=== PATIENT | female | born 2005 | race Two or more races ===

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

== ENCOUNTER 2025-06-05 10:11 | Outpatient (REF) | payer MEDICAID, SELFPAY ==
--- OUTSIDE RECORDS SUMMARY | 2025-06-05 11:00 | XMS_ITS | Encounter Summary ---
Author Organization [employer] Address [address] [facility] 7t [place] [address] Care Team Providers Care Fire Engine Pump Operator Name Role Phone Leslee Mckeon NP Primary Care Provider [phone] Reason for Visit * Reason Onset Date Comments Lab Orders 06/04/2025 Encounter Details Date Type Department Care Team ([facility] st Contact Info) Description 06/04/2025 Telephone [facility] MEDICINE [address] [place] [address] Leslee Mckeon NP [address] [place] [address] Lab Orders Social History Tobacco Use Types Packs/Day Years Used Date Smoking Tobacco: Never Smokeless Tobacco: Never Alcohol Use Standard Drinks/Week Comments Yes 0 (1 standard drink = 0.6 oz pur e alcohol) on special occasions Alcohol Answer Date Recorded How often do you have a drink containing alcohol ? 0 11/13/2024 How many drinks containing a lcohol do you have on a typical day when you are drinking? 2 11/13/2024 How often do you have six or more drinks on one occasion? 0 11/13/2024 Depression Answer Date Recorded Patient Health Questionnaire-9 Score 15 11/13/2024 Patient Health Questionnaire-9 Score 15 11/13/2024 Last PHQ-9: Questionnaire Data Not on file 1 01/14/2024 Housing Stability Answer Date Recorded What is your housing situation today? I do not have housing (Staying with others, in a hotel, in a long-term, living outside on the street, on a beach, in a car, or in a park 12/25/[address] you li ve. Do you have problems with any of the following? None of the above 12/25/2024 Food Insecurity Answer Date Recorded Within the past 12 months, y ou worried that your food would run out before you got money to buy more: Sometimes True 2024 Within the past 12 months,th e food you bought just didn't last and you didn't have enough money to get more: Never True 12/25/2024 Transportation Answer Date Recorded In the past 12 months, has l ack of transportation kept you from medical appts, meetings, work or from getting things needed for daily living? No 12/25/2024 Utilities Answer Date Recorded In the past 12 months, has t he electric, gas, oil or water company threatened to shut off services in your home? No 12/25/2024 Depression Answer Date Recorded Patient Health Questionnaire-2 Score 4 11/13/2024 Internet Access Answer Date Recorded Internet Access Q1 Yes 12/25/2024 Internet Access Q2 Not on file 12/25/2024 Comments Unknown Sex and Gender Information Value Date Recorded Sex Assigned at Female 09/28/2022 10:21 AM EDT Legal Sex Female 10:21 AM EDT Gender Identity Female 09/28/2022 10:21 AM EDT Sexual Orientation Choose not to disclose 2021 10:21 AM EDT documented as of this encounter Miscellaneous Notes * Telephone Encounter - Madeline Fish RN - 06/04/2025 1:24 PM EDT TC placed to pt via S stonemason ([employer]) to inform TB test order placed and pt to go to lab attheir convenience. Pt denies need for stonemason. Advised pt TB test order placed and pt to go to lab at their convenience. Pt verbalized understanding and denies questions at this time. * Telephone Encounter - Evelin Lamb - 06/04/2025 1:00 PM EDT Tc from pt requesting TB test for work. documented in this encounter Plan of Treatment Scheduled Orders Name Type Priority Associated Diagnoses Orde r Schedule T-SPOT .TB Lab Routine Screening-pulmonary TB Expected: 06/04/2025 (Approximate), Expires: 06/04/2026 documented as of this encounter Visit Diagnoses Diagnosis Screening-pulmonary TB- Primary Screening examination for pulmonary tuberculosis documented in this encounter Additional Health Concerns Assessment Noted Time PHQ-9 Depression Total Score: 15 024 10:44 AM EST documented as of this encounter Care Teams Fire Engine Pump Operator Relationship Specialty Start Date End Date Leslee Mckeon NP [address] [place] [address] PCP - General Family Medicine 05/30/24 documented as of this encounter
--- OUTSIDE RECORDS SUMMARY | 2025-06-05 11:00 | XMS_ITS | Clinical Summary ---
Author Organization [facility] ity Address [address] [place] [address] Care Team Providers Care High School Teacher Name Role Phone Unavailable Primary Care Provider Unavailabl e Social History Tobacco Use Types Packs/Day Years Used Date Smoking Tobacco: Never Assessed Comments Unknown Sex and Gender Information Value Date Recorded Sex Assigned at Not on file Legal Sex Female 9:28 AM EST Gender Identity Not on file Sexual Orientation Not on file Plan of Treatment Health Maintenance Due Date Last Done Comments Gonorrhea/Chlamydia Screening 2005 Varicella Vaccines (1 of 2 - 13+ 2-dose series) 2018 HPV Vaccines (1 - 3-dose series) 2020 Meningococcal B Vaccine (1 o f 2 - Standard) 2021 DTaP,Tdap,and Td Vaccines (1 - Tdap) 2024 Hepatitis B Vaccines (1 of 3 - 19+ 3-dose series) 2024 COVID-19 Vaccine (1 - 2023-2 5 season) 2024 Influenza Vaccine (#1) 2025 HIB Vaccines Aged Out No longer eligi ble based on patient's age to complete this topic Hepatitis A Vaccines Aged Out No long er eligible based on patient's age to complete this topic IPV Vaccines Aged Out No longer eligi ble based on patient's age to complete this topic MMR Vaccines Aged Out No longer eligi ble based on patient's age to complete this topic Meningococcal ACWY Vaccine Aged Out N o longer eligible based on patient's age to complete this topic Pneumococcal Vaccine: Pediat rics (0 to 5 Years) and At-Risk Patients (6 to 49 Years) Aged Out No longer eligible b ased on patient's age to complete this topic RSV Immunization Patients Un jordan 20 months Aged Out No longer eligible b ased on patient's age to complete this topic
== END 2025-06-05 10:12 | disposition home or self-care (01) ==
LOC: HO.HHCL 10:11
PROVIDERS: PCP Nurse Practitioner; Visit Provider Nurse Practitioner
DX: Z11.1 Encounter for screening for respiratory tuberculosis (principal)
CPT/HCPCS: 36415; 86481

== ENCOUNTER 2025-06-13 15:13 | Outpatient (REF) | payer MEDICAID, SELFPAY ==
--- OUTSIDE RECORDS SUMMARY | 2025-06-13 15:34 | XMS_ITS | Clinical Summary ---
Author Organization [employer] Address [address] [facility] 7[address] [place] [address] Care Team Providers Care Acid Purification Equipment Operator Name Role Phone Leslee Mckeon KAILYN Primary Care Provider [phone] Allergies No known active allergies Medications * This document contains information received from the source organization and may not represent a complete record from that organization. cholecalciferol (Vitamin D-3) 10 MCG (400 UNIT) tablet TOME DOS TABLETAS POR V A ORAL TODOS LOS D 5 Active oxymetazoline (Afrin Nasal [place]) 0.05 % nasal sprayIndication s:Dysfunction of both eustachian tubes Administer 2 sprays into each nostril every 12 (twelve) hours if needed for congestion for up to 2 days. Do not use for more than 3 days. 30 mL 5 Active pseudoephedrine (Sudafed) 30 MG tabletIndicatio ns:Dysfunction of both eustachian tubes 1 tab every 6 hours prn congestion/ear fullness. 30 tablet 1 5 Active Active Problems Problem Noted Date Diagnosed Date Underweight (BMI < 18.5) 12/28/2024 Assessment & Plan (12/28/2024 10:57 AM EST): -recommend full fat diet and consumption of small frequent meals -discussed importance of heart health and maintaining physical activity as well Subclinical hyperthyroidism 11/13/2024 Assessment & Plan (12/28/2024 10:53 AM EST): -resolved with repeat thyroid function labs WNL Assessment & Plan (11/13/2024 9:40 AM EST): Images from the original note were not included. -repeat thyroid function labs ordered today Severe anxiety 11/13/2024 Depressive disorder 04/19/2024 Assessment & Plan (12/28/2024 10:57 AM EST): -patient reports improvement -continue engaging with therapist Assessment & Plan (11/13/2024 11:29 AM EST): PROGRESS NOTE: ID: Alaina is a 19 y.o. White choose not to disclose-identified cis- female with previous documented hx of Depression services including OP Psychotherapy psychopharmacology who presents for Anxiety and Depression During IBH Consult Alaina presenting with depressed mood, crying spells , irritable mood, loss of interests/pleasure , sense of isolation/loneliness , change in appetite or weight reduce appetite and unintentional weight loss , changes in sleep difficulty falling asleep and difficulty staying asleep , psychomotor retardation, fatigue/loss of energy, difficulty concentrating and excessive worry/anxiety, difficulty controlling worry, and anxiety/worry associated to restlessness and/or feeling keyed-up/On edge , easily fatigued , difficulty concentrating and/or mind going blank , irritability, muscle tension , and sleep disturbance difficulty falling asleep and difficulty staying asleep ; for a period of 0-6 mo, for most or all symptoms in the context of financial concern, housing instability, stress relationship with family. PLAN: New/Additional Services needed Off-site services for Behavioral Health Integration Plan External OP therapy referral Patient Self Plan Patient to utilize skills provided in intervention , Patient to reach out to [facility] team as needed, and Patient to engage in OP therapy Hypovitaminosis D 11/07/2021 Assessment & Plan (12/28/2024 10:52 AM EST): -started cholecalciferol 800 U every day. Patient is tolerating well Dysmenorrhea 11/05/2021 Resolved Problems Problem Noted Date Diagnosed Date Resolved Date Decreased thyroid stimulating hormone level 11/07/2021 12/28/2024 Encounters Date Type Department Care Team Description 06/13/2025 Results Follow-Up [facility] MEDICINE [address] [place] [address] Leslee Mckeon NP T-SPOT .TB 06/04/2025 Telephone [facility] MED[facility]INE [address] [place] [address] Leslee Mckeon NP Lab Orders 03/14/2025 11:20 AM EDT Office Visit [facility] [address] [place] [address] Jefferson Douglass MD Dysfunction of both eustachian tubes (Primary Dx) from Last 3 Months Immunizations Immunization Administration Dates Next Due DTaP / Hep B / IPV 2005 DTaP / IPV 04/04/2009 DTaP, Unspecified 08/13/2006,2005,09/01/20 05 HPV 9-Valent 03/23/2019,09/14/2017 Hep A, Unspecified 05/30/2013 Hep A, ped/adol, 2 dose 08/26/2012 Hep B, Adolescent or Pediatric 2005,2004 Hep B, Unspecified 2005 HiB, unspecified 08/13/2006,2005 Hib (PRP-T) 2005 IPV 2005,2005 Influenza injectable quadriv alent preservative free 08/13/2022,02/10/2022,12/20/2020,11/09,10/02/2019 MMR 04/20/2006 MMRV 04/04/2009 Meningococcal MCV4P ACYW-135 02/10/2022,08/31/20 16 Pneumococcal Conjugate PCV 13 05/05/2010 ,08/13/2006,2005,09/01,2005 Tdap 08/31/2016 Varicella 04/20/2006 Family History Medical History Relation Name Comments No Known Problems Father Diabetes Maternal Grandmother Glaucoma Maternal Grandmother Hypertension Maternal Grandmother No Known Problems Mother Heart attack Paternal Grandfather Heart disease Paternal Grandfather Stroke Paternal Grandfather Diabetes Paternal Grandmother Relation Name Status Comments Father Maternal Grandmother Mother Paternal Grandfather Paternal Grandmother Social History Tobacco Use Types Packs/Day Years Used Date Smoking Tobacco: Never Smokeless Tobacco: Never Tobacco Cessation:Counseling Given: Not Answered Alcohol Use Standard Drinks/Week Comments Yes 0 [...] not to disclose 2021 10:21 AM EDT Last Filed Vital Signs Vital Sign Reading Time Taken Comments Blood Pressure 139/79 03/14/2025 10:54 AM EDT Pulse 90 03/14/2025 10:54 AM EDT Temperature 36.8 C (98.3 F) 03/14/2025 10:54 AM EDT Respiratory Rate 18 03/14/2025 10:54 AM EDT Oxygen Saturation 98% 03/14/2025 10:54 AM EDT Inhaled Oxygen Concentration - - Weight 43.2 kg (95 lb 3.2 oz) 03/14/2025 10:54 A M EDT Height 162.6 cm (5' 4 ) 12/25/2024 10:13 AM EST Body Mass Index 16.34 12/25/2024 10:13 AM EST Plan of Treatment Health Maintenance Due Date Last Done Comments Chlamydia and Gonorrhea Screening 2005 HIV Screening 2005 Disability Screening 2005 Family Planning (PISQ) 2020 Meningococcal B Vaccine (1 of 2 - Standard) 2021 Hepatitis C Screening 2023 COVID-19 Vaccine (1 - season) 2024 Depression Monitoring 05/14/2025 11/13/2024, 024 Influenza Vaccine (#1) 2025 , 02/10/2022, 12/20/2020, Additional history exists Alcohol/Substance Use Screening 11/13/2025 11/13/2024 SDOH Screening 12/25/2025 12/25/2024 Tobacco Screening 03/14/2026 03/14/2025 DTaP/Tdap/Td Vaccines (7 - Td or Tdap) 08/31/2026 08/31/2016, 04/04/2009, 08/13/2006, Additional history exists Zoster Vaccines (1 of 2) 2055 RSV Patients and Patients Aged 60 years or older (1 - 1-dose 75+ series) 2080 Hepatitis B Vaccines Completed 2005, 2005, 2005, Additional history exists HIB Vaccines Completed 08/13/2006, 03/2005, 2005 IPV Vaccines Completed 04/04/2009, 03/2005, 2005, Additional history exists Pneumococcal Vaccine: Pediatrics (0 to 5 Years) and At-Risk Patients (6 to 49) Years Completed 05/05/2010, 08/13/2006, 2005, Additional history exists Hepatitis A Vaccines Completed 05/30/2013, 05/30/2013, 08/26/2012 HPV Vaccines Completed 03/23/2019, 08/29, 09/14/2017 Meningococcal Vaccine Completed 02/10/2022, 016 RSV under 20 months Aged Out No longe r eligible based on patient's age to complete this topic Rotavirus Vaccines Aged Out No longer eligible based on patient's age to complete this topic Procedures Procedure Name Priority Date/Time Associated Diagnosis Comments T-SPOT(R).TB Routine 06/05/2025 10:21 AM EDT Screening-pulmonary TB from Last 3 Months Results * T-SPOT??.TB (06/05/2025 10:21 AM EDT) T Spot TB [facility] Comment:TEST NOT PERFORMEDTh e specimen exceeds stability forthe test requested.THIS TEST WAS PERFORMED AT:[employer] [id number] [place] [id number] WOLFE MD,PHD TS PANEL A [facility] Comment:NOTIFIED YOSI FROM [facility] 06/13 AT 1440 FOR REORDERAND RECOLLECT. TS PANEL B [facility] Negative Control [facility] Positive Control [facility] Comment:T-SPOT.TB: TNPTEST N OT PERFORMEDThe specimen exceeds stability forthe test requested.Site Information AMD: [employer] [facility] [id number] [place], [place] Laboratory Director: Clifford Wolfe M.D.,PhD 06/05/2025 10:2 1 AM EDT 06/05/2025 12:18 PM EDT Leslee Mckeon MINUTE CLERK LAB BLOOD ORDERABLES Edited Res ult - Final [facility] [address] [place] [address] [phone] from Last 3 Months Insurance Merkle C3 Merkle C3 Care Teams Acid Purification Equipment Operator Relationship Specialty Start Date End Date Leslee Mckeon NP [address] [place] [phone] PCP - General Family Medicine 05/30/24
--- OUTSIDE RECORDS SUMMARY | 2025-06-13 15:34 | XMS_ITS | Clinical Summary ---
Author Organization [facility] ity Address [address] [place] [address] Care Team Providers Care Impregnating Machine Operator Name Role Phone Unavailable Primary Care Provider [...]
[2025-06-16 08:27] LABS: TS Negative Control Passed; TS Panel A 0; TS Panel B 0; TS Positive Control Passed; TSpotTB Negative (Negative)
== END 2025-06-13 15:14 | disposition home or self-care (01) ==
LOC: HO.HHCL 15:13
PROVIDERS: PCP Nurse Practitioner; Visit Provider Nurse Practitioner
DX: Z11.1 Encounter for screening for respiratory tuberculosis (principal)
CPT/HCPCS: 36415; 86481

== ENCOUNTER 2025-11-02 17:23 | Outpatient (REF) | payer MEDICAID, SELFPAY ==
--- OUTSIDE RECORDS SUMMARY | 2025-11-02 11:30 | XMS_ITS | Encounter Summary ---
Author Organization [employer] Address [address] [facility] [address]t [place] [address] Care Team Providers Care Tax Intern Name Role Phone Leslee Mckeon NP Primary Care Provider [phone] Reason for Visit * Reason Comments Depo Initial Encounter Details Date Type Department Care Team (Latest Contact Info) Description 11/02/2025 11:30 AM EST Clinical Support [facility] MEDICINE [address] [place] [id number] Marie Landry, RN Routine screening for STI (sexually transmitted infection) Social History Tobacco Use Types Packs/Day Years Used Date Smoking Tobacco: Never Smokeless Tobacco: Never Alcohol Use Standard Drinks/Week Comments Yes 0 (1 standard drink = 0.6 oz pur e alcohol) on special occasions Alcohol Answer Date Recorded How often do you have a drink containing alcohol ? 0 10/17/2025 How many drinks containing a lcohol do you have on a typical day when you are drinking? 0 10/17/2025 How often do you have six or more drinks on one occasion? 0 10/17/2025 Depression Answer Date Recorded Patient Health Questionnaire-9 Score 11 10/17/2025 Patient Health Questionnaire-9 Score 11 10/17/2025 Last PHQ-9: Questionnaire Data Not on file 1 12/17/2024 Housing Stability Answer Date Recorded What is your housing situation today? I do not have housing (Staying with others, in a hotel, in a half-way, living outside on the street, on a [...] Answer Date Recorded Patient Health Questionnaire-2 Score 2 10/17/2025 Internet Access Answer Date Recorded Internet Access Q1 Yes 12/25/2024 Internet Access Q2 Not on file 12/25/2024 Comments No Sex and Gender Information Value Date Recorded Sex Assigned at Female 09/28/2022 10:21 AM EDT Legal Sex Female 10:21 AM EDT Gender Identity Female 09/28/2022 10:21 AM EDT Sexual Orientation Choose not to disclose 2021 10:21 AM EDT documented as of this encounter Last Filed Vital Signs Vital Sign Reading Time Taken Comments Blood Pressure 106/70 11/02/2025 11:35 AM EST Pulse 73 11/02/2025 11:35 AM EST Temperature 37.4 C (99.4 F) 11/02/2025 11:35 AM EST Respiratory Rate 16 11/02/2025 11:35 AM EST Oxygen Saturation 99% 11/02/2025 11:35 AM EST RA Inhaled Oxygen Concentration - - Weight 45.2 kg (99 lb 9.6 oz) 11/02/2025 11:35 A M EST Height 162.6 cm (5' 4 ) 11/02/2025 11:35 AM EST Body Mass Index 17.1 11/02/2025 11:35 AM EST documented in this encounter Progress Notes * Marie Landry RN - 11/02/2025 11:30 AM EST SUBJECTIVE: Alaina Trinidad is a 20 y.o. year old female who presents for Depo Initial. Pt reports they're not on any contraceptive at this time but used bc pills in the past as method of contraception. Pt reports they smoke marijuana only but denies any unprotected sex in the last 5 days and since their LMP. Pt reports their LMP was on 10/17/25 and they're cycle is irregular. Pt reports they wanted to try this method to help regulate their cycle and because they are currently sexually active. Pt also reports they discussed with their PCP in regards to complete sti testing during the visit as well. Consent form reviewed with pt and signature provided. Consent form placed in HIM scanning bin. Protocol for Depo-Provera initiation: Sexual intercourse within 5 days of Depo initiation: administer Depo, give prescription for emergency contraception (EC) and repeat urine HCG in 1 month Sexual intercourse more than 5 days of Depo initiation: administer Depo, repeat urine HCG in 1 month Patient has no known allergies. Immunization History Administered Date(s) Administered DTaP / Hep B / IPV 2005 DTaP / IPV 04/04/2009 DTaP, Unspecified 2005, 2005, 08/13/2006 HPV 9-Valent 09/14/2017, 03/23/2019 Hep A, Unspecified 05/30/2013 Hep A, ped/adol, 2 dose 08/26/2012 Hep B, Adolescent or Pediatric 2005, 2005 Hep B, Unspecified 2005 HiB, unspecified 2005, 08/13/2006 Hib (PRP-T) 2005 IPV 2005, 2005 Influenza injectable quadrivalent preservative free 10/02/2019, 11/09/2019, 12/20/2020, 02/10/2022,08/13/2022 MMR 04/20/2006 MMRV 04/04/2009 Meningococcal MCV4P ACYW-135 08/31/2016, 02/10/2022 Pneumococcal Conjugate PCV 13 2005, 2005, 2005, 08/13/2006, 05/05/2010 Tdap 08/31/2016 Varicella 04/20/2006 OBJECTIVE: Patient's last menstrual period was 10/17/2025 (exact date). Vitals: 11/02/25 1135 BP: 106/70 Pulse: 73 Resp: 16 Temp: 99.4 ??F (37.4 ??C) TempSrc: Oral SpO2: 99% Weight: 99 lb 9.6 oz (45.2 kg) Height: 5' 4 (1.626 m) Lab Results Component Value Date PREGTESTUR Negative 11/02/2025 No results found for: RAPIDCHGONTR , GONORRHOEAEP , TRICHOMONASR No results found for: KIBPNTP0XS , HEPCAB , CTPCR , NGPCR , TRICHOMONAS Tobacco Use History[1] Sexually active: YES. intention: Pt would like to avoid at this time. Contraception counseling provided: Yes I emphasized that switching methods is common, and that they can discontinue using any method at any time. After today's discussion, they would like to continue to use Depo-Provera. We discussed correct method use and indications for emergency contraceptive use. They can follow up at any time to discuss their contraceptive options, side effects they're experiencing, or to switch methods. Depo-Provera 150 mg/ml administered intramuscularly to: left deltoid. Medication was tolerated well. EDUCATION: The following side effects/prevention education were reviewed with Alaina Trinidad and they confirmed understanding Spotting Headache Weight gain Hair loss Mood changes Proper condom use Risk reduction behavior ASSESSMENT: Contraceptive Management PLAN: Alaina Trinidad scheduled for next Depo-Provera administration with team nurse on 01/18/26 and provided with appointment reminder. Depo window closes on 02/15/26. Message sent to provider to put in a standing order for next visit. Labs ordered: Yes. Alaina Trinidad agreeable to plan. Marie Landry RN [1] Social History Tobacco Use Smoking Status Never Smokeless Tobacco Never documented in this encounter Plan of Treatment Upcoming Encounters Date Type Department Care Team (Late st Contact Info) Description 12/04/2025 9:30 AM EST Clinical Support [address] [address] 01/18/2026 11:00 AM EST Clinical Support [address] [address] documented as of this encounter Procedures Procedure Name Priority Date/Time Associated Diagnosis Comments POCT , URINE Routine 11/02/2025 11:46 AM EST Routine screening for STI (sexually transmitted infection) documented in this encounter Results * POCT Urine (11/02/2025 11:46 AM EST) Preg Test, Ur Negative Negative, Indeterminate, None Detected, Trace, 3+, Specimen unsatisfactory for evaluation, Weakly Positive, 1+, 2+ QC Media Lot # [id number] Lot# Expiration Date [id number] Urine 11/02/2025 11:4 6 AM EST Leslee Mckeon NP POINT OF CARE TEST ENTER/EDIT O RDERABLES Final Result documented in this encounter Visit Diagnoses Diagnosis Routine screening for STI (sexually transmitted infection) Screening examination for venereal disease documented in this encounter Administered Medications Inactive Administered Medications - up to 3 most recent administrations Medication Order MAR Action Action Date Dose Rate Site medroxyPROGESTERone (Depo-Provera) injection 150 mg 150 mg, Intramuscular, Once, On Wed11/02/25 at 1100, For 1 dose, IM Q11-15 weeks, bring to office for injectionIndications:Encount er for initial prescription of injectable contraceptive Given 11/02/2025 12:00 PM EST 150 mg Left Deltoid documented in this encounter Additional Health Concerns Assessment Noted Time PHQ-9 Depression Total Score: 11 10/17/ 025 4:04 PM EST documented as of this encounter Care Teams Tax Intern Relationship Specialty Start Date End Date Leslee Mckeon NP [address] [place] [id number] PCP - General Family Medicine 05/30/24 documented as of this encounter
--- OUTSIDE RECORDS SUMMARY | 2025-11-02 20:00 | XMS_ITS | Clinical Summary ---
Author Organization [employer] Address 75 [facility] 7t [place] [address] Care Team Providers Care Hospitality Director Name Role Phone Leslee Mckeon NP Primary Care Provider [phone] Allergies No known active allergies Medications * This document contains information received from the source organization and may not represent a complete record from that organization. cholecalciferol (Vitamin D-3) 10 MCG (400 UNIT) tablet TOME DOS TABLETAS POR V A ORAL TODOS LOS D 5 Active oxymetazoline (Afrin Nasal Glasco) 0.05 % nasal sprayIndications: Dysfunction of both eustachian tubes Administer 2 sprays into each nostril every 12 (twelve) hours if needed for congestion for up to 2 days. Do not use for more than 3 days. 30 mL 5 Active pseudoephedrine (Sudafed) 30 MG tabletIndications :Dysfunction of both eustachian tubes 1 tab every 6 hours prn congestion/ear fullness. 30 tablet 1 5 Active medroxyPROGESTERo ne (Depo-Provera) 150 MG/ML injectionIndicati ons:Encounter for initial prescription of injectable contraceptive Inject 1 mL (150 mg) into the muscle every 3 (three) months. 1 mL 3 11/02/2025 11:20 AM EST 5 Active Hospital, Clinic, or Other Facility Administered Medication Ordered Dose Route Frequency Start Date End Date Status medroxyPROGESTERone (Depo-Provera) injection 150 mgIndications:Depo-Pro vera contraceptive status 150 mg IM Every 3 months 01/18/2026 01/13/2027 Active medroxyPROGESTERone (Depo-Provera) injection 150 mgIndications:Encounte r for initial prescription of injectable contraceptive 150 mg IM Once 11/02/2025 11/02/2025 Ended Active Problems Problem Noted Date Diagnosed Date [...] intervention , Patient to reach out to [facility] team as needed, and Patient to engage in OP therapy Hypovitaminosis D 11/07/2021 Assessment & Plan (12/28/2024 10:52 AM EST): -started cholecalciferol 800 U every day. Patient is tolerating well Dysmenorrhea 11/05/2021 Resolved Problems Problem Noted Date Diagnosed Date Resolved Date Decreased thyroid stimulating hormone level 11/07/2021 12/28/2024 Encounters Date Type Department Care Team Description 11/02/2025 11:30 AM EST Clinical Support [facility] [address] [place] [phone] Marie Landry RN Routine screening for STI (sexually transmitted infection) 11/02/[address] [facility] [address] [place] [address] Leslee Mckeon NP Depo-Provera contraceptive status (Primary Dx) 11/02/[address] [facility] [address] [place] [address] Marie Landry RN 11/02/2025 Travel 10/23/[address] [facility] [address] [place] [address] Leslee Mckeon NP Appointment Request 10/17/2025 4:00 PM EST Office Visit [address] [address] Leslee Mckeon NP Routine screening for STI (sexually transmitted infection) (Primary Dx); Impaired regulation of body temperature; Encounter for initial prescription of injectable contraceptive 10/17/2025 Travel 10/16/[address] [facility] [address] [place] [address] Leslee Mckeon NP CHARTPREP from Last 3 Months Immunizations Immunization Administration [...] with others, in a hotel, in a mcfp, living outside on the street, on a [...] Mass Index 17.1 11/02/2025 11:35 AM EST Plan of Treatment Upcoming Encounters Date Type Department Care Team (Late st Contact Info) Description 12/04/2025 9:30 AM EST Clinical Support [facility] [address] [place], [place] [phone] 01/18/2026 11:00 AM EST Clinical Support [facility] [address] [facility] [place] [address] Health Maintenance Due Date Last Done Comments HIV Screening 2005 Family Planning (PISQ) 2020 Meningococcal B Vaccine (1 of 2 - Standard) 2021 Chlamydia and Gonorrhea Screening 09/18/2022 09/18/2021 Hepatitis C Screening 2023 COVID-19 Vaccine ( season) 2025 Influenza Vaccine (#1) 2025 , 02/10/2022, 12/20/2020, Additional history exists SDOH Screening 12/25/2025 12/25/2024 Depression Monitoring 04/16/2026 10/17/2025, 025 DTaP/Tdap/Td Vaccines (7 - Td or Tdap) 08/31/2026 08/31/2016, 04/04/2009, 08/13/2006, Additional history exists Alcohol/Substance Use Screening 10/17/2026 10/17/2025 Disability Screening 10/17/2026 10/17/2025 Tobacco Screening 10/17/2026 10/17/2025 Zoster Vaccines (1 of 2) 2055 RSV [...] Routine screening for STI (sexually transmitted infection) from Last 3 Months Results * POCT Urine (11/02/2025 11:46 AM EST) Preg Test, Ur Negative Negative, Indeterminate, None Detected, Trace, 3+, Specimen unsatisfactory for evaluation, Weakly Positive, 1+, 2+ QC Media Lot # [id number] Lot# Expiration Date [id number] Urine 11/02/2025 11:4 6 AM EST Leslee Field HEARING AID ASSISTANT POINT OF CARE TEST ENTER/EDIT O RDERABLES Final Result from Last 3 Months Insurance NeurAxon C3 NeurAxon C3 Care Teams Hospitality Director Relationship Specialty Start Date End Date Leslee Mckeon NP [address] [place] [address] PCP - General Family Medicine 05/30/24
--- OUTSIDE RECORDS SUMMARY | 2025-11-02 20:01 | XMS_ITS | Encounter Summary ---
Author Organization [employer] Address 75 [facility] 7t [place] [address] Care Team Providers Care Pension Adviser Name Role Phone Leslee Mckeon NP Primary Care Provider [phone] Reason for Visit * Reason Onset Date Comments Referral 12/01/2024 Encounter Details Date Type Department Care Team ([facility] st Contact Info) Description 12/01/2024 Telephone [facility] 230 [place] [address] Leslee Mckeon NP 230 [place] [address] Referral Social History Tobacco Use Types Packs/Day Years [...] Questionnaire Data Not on file 1 01/14/2024 Depression Answer Date Recorded Patient Health Questionnaire-2 Score 4 11/13/2024 Comments Unknown Sex and Gender Information Value Date Recorded Sex Assigned at Female 09/28/2022 10:21 AM EDT Legal Sex Female 10:21 AM EDT Gender Identity Female 09/28/2022 10:21 AM EDT Sexual Orientation Choose not to disclose 2021 10:21 AM EDT documented as of this encounter Miscellaneous Notes * Telephone Encounter - Nimisha Altamirano - 12/01/2024 8:43 AM EST TC from pt requesting call back regarding Results. Type of results: Ferritin,Vitamin B12, Iron,CBC,T3,Vitamin D, TSH Date when done: 11/13/2024 Facility: [facility] documented in this encounter Plan of Treatment Upcoming Encounters Date Type Department Care Team (Late st Contact Info) Description 12/04/2025 9:30 AM EST Clinical Support [address] [address] 01/18/2026 11:00 AM EST Clinical Support [address] [address] documented as of this encounter Visit Diagnoses Not on filedocumented in this encounter Additional Health Concerns Assessment Noted Time PHQ-9 Depression Total Score: 15 024 10:44 AM EST documented as of this encounter Care Teams Pension Adviser Relationship Specialty Start Date End Date Leslee Mckeon NP [address] [place] [phone] PCP - General Family Medicine 05/30/24 documented as of this encounter
--- OUTSIDE RECORDS SUMMARY | 2025-11-02 20:01 | XMS_ITS | Encounter Summary ---
Author Organization [employer] Address [address] [facility] 7t [place] [address] Care Team Providers Care Irrigation Specialist Name Role Phone Leslee Mckeon NP Primary Care Provider [phone] Encounter Details Date Type Department Care Team (Latest Contact Info) Description 11/02/2025 Travel Social History Tobacco Use Types Packs/Day Years [...] AM EDT documented as of this encounter Plan of Treatment Upcoming Encounters Date Type Department Care Team (Late st Contact Info) Description 12/04/2025 9:30 AM EST Clinical Support [address] [address] 01/18/2026 11:00 AM EST Clinical Support [address] [address] documented as of this encounter Visit Diagnoses Not on filedocumented in this encounter Additional Health Concerns Assessment Noted Time PHQ-9 Depression Total Score: 11 025 4:04 PM EST documented as of this encounter Care Teams Irrigation Specialist Relationship Specialty Start Date End Date Leslee Mckeon NP [address] [place] [address] PCP - General Family Medicine 05/30/24 documented as of this encounter
--- OUTSIDE RECORDS SUMMARY | 2025-11-02 20:01 | XMS_ITS | Encounter Summary ---
Author Organization [employer] Address 75 [facility] 7t [place] [address] Care Team Providers Care Lap Machine Operator Name Role Phone Leslee Mckeon NP Primary Care Provider [phone] Encounter Details Date Type Department Care Team ([facility] st Contact Info) Description 11/02/2025 Orders Only [facility] [address] [place] [address] Leslee Mckeon NP 230 [place] [address] Depo-Provera contraceptive status (Primary Dx) Social History Tobacco Use Types Packs/Day Years [...] with others, in a hotel, in a usp, living outside on the street, on a [...] Description 12/04/2025 9:30 AM EST Clinical Support [address] [address] 01/18/2026 11:00 AM EST Clinical Support [address] [address] documented as of this encounter Visit Diagnoses Diagnosis Depo-Provera contraceptive status- Primary documented in this encounter Additional Health Concerns Assessment Noted Time PHQ-9 Depression Total Score: 11 025 4:04 PM EST documented as of this encounter Care Teams Lap Machine Operator Relationship Specialty Start Date End Date Leslee Mckeon NP [address] [place] [address] PCP - General Family Medicine 05/30/24 documented as of this encounter
--- OUTSIDE RECORDS SUMMARY | 2025-11-02 20:01 | XMS_ITS | Encounter Summary ---
Author Organization [employer] Address 75 [facility] 7t [place] [address] Care Team Providers Care Obiee Lead Developer Name Role Phone Leslee Mckeon NP Primary Care Provider [phone] Encounter Details Date Type Department Care Team ([facility] st Contact Info) Description 11/02/2025 Telephone [facility] 230 [place] [address] Marie Landry RN Social History Tobacco Use Types Packs/Day Years [...] with others, in a hotel, in a intermediate, living outside on the street, on a [...] encounter Miscellaneous Notes * Telephone Encounter - Marie Landry RN - 11/02/2025 2:09 PM EST Tc to pt to schedule them for 1 mo HCG follow up since they received the Depo injection outside of their menstrual cycle window. Pt agreed with plan and scheduled on 12/04/24 with blue team nurse. Pt advised to yin condoms in the next 7 days as the method of protection until the Depo tasks full effect. No further questions or concerns at this time. documented in this encounter Plan of Treatment Upcoming Encounters Date Type Department Care Team (Late st Contact Info) Description 12/04/2025 9:30 AM EST Clinical Support [facility] [address] [place] [address] 01/18/2026 11:00 AM EST Clinical Support [address] [address] documented as of this encounter Visit Diagnoses Not on filedocumented in this encounter Additional Health Concerns Assessment Noted Time PHQ-9 Depression Total Score: 11 025 4:04 PM EST documented as of this encounter Care Teams Obiee Lead Developer Relationship Specialty Start Date End Date Leslee Mckeon NP [address] [place] [address] PCP - General Family Medicine 05/30/24 documented as of this encounter
--- OUTSIDE RECORDS SUMMARY | 2025-11-02 20:01 | XMS_ITS | Encounter Summary ---
Author Organization [employer] Address 75 [facility] 7 [place] [address] Care Team Providers Care Calciminer Name Role Phone Leslee Mckeon NP Primary Care Provider [phone] Reason for Visit * Reason Onset Date Comments Appointment Request 10/23/2025 Encounter Details Date Type Department Care Team ([facility] st Contact Info) Description 10/23/2025 Telephone [facility] 230 [place], [place] [phone] Leslee Mckeon NP [address] [place] [address] Appointment Request Social History Tobacco Use Types Packs/Day Years [...] with others, in a hotel, in a skilled nursing, living outside on the street, on a [...] Telephone Encounter - Madeline Fish RN - 10/24/2025 3:08 PM EST TC placed to pt via [employer] senior software architect ([place] ID#[id number]) regarding appointment request. Pt denied need for senior software architect. TC returned to pt without senior software architect. Pt requesting STI testing and depo provera at nurse visit. Advised pt to go to [facility] for [facility]I testing. Pt reports they were advised by PCP STI testing and DEPO could be done at the same visit. TC placed to commercial center manager Leticia. Leticia reports we used to have the testing, but no longer do. Leticia states to advise pt message can be sent to PCPfor STI testing lab orders to be placed or pt can go to [facility]. Pt requesting message be sent to PCP. Pt booked for initial DEPO on 11/02/25/ at 11:30 AM. Pt verbalized understanding and denies questionsat this time. Message sent to PCP requesting lab order be placed for STI testing, request for DEPO medication to be sent to pharmacy, and request for standing order for DEPO. * Telephone Encounter - Solis Henderson - 10/23/2025 10:49 AM EST Tc from pt requesting appointment for ati and control Please contact at [phone] documented in this encounter Plan of Treatment Upcoming Encounters Date Type Department Care Team ([facility] st Contact Info) Description 12/04/2025 9:30 AM EST Clinical Support [address] [address] 01/18/2026 11:00 AM EST Clinical Support [address] [address] documented as of this encounter Visit Diagnoses Not on filedocumented in this encounter Additional Health Concerns Assessment Noted Time PHQ-9 Depression Total Score: 11 025 4:04 PM EST documented as of this encounter Care Teams Calciminer Relationship Specialty Start Date End Date Leslee Mckeon NP [address] [place] [address] PCP - General Family Medicine 05/30/24 documented as of this encounter
[2025-11-03 01:45] LABS: CT PCR Urine NOT DETECTED (Not Detect.); NG PCR Urine NOT DETECTED (Not Detect.)
== END 2025-11-02 17:24 | disposition home or self-care (01) ==
LOC: HO.HHCLNP 17:23
PROVIDERS: Visit Provider Nurse Practitioner
DX: Z20.2 Contact with and (suspected) exposure to infections with a predominantly sexual mode of transmission (principal)
CPT/HCPCS: 87491; 87591; 87661

== ENCOUNTER 2025-11-27 14:14 | Emergency (ER) | payer MEDICAID, SELFPAY ==
--- OUTSIDE RECORDS SUMMARY | 2025-11-27 18:28 | XMS_ITS | Encounter Summary ---
Author Organization [employer] Address 75 [facility] 7t [place] [address] Care Team Providers Care Manager Title Name Role Phone Leslee Mckeon NP Primary Care Provider [phone] Encounter Details Date Type Department Care Team ([facility] st Contact Info) Description 11/02/2025 Orders Only [facility] 230 [place] [address] Leslee Mckeon NP [address] [place] [address] Depo-Provera contraceptive status (Primary Dx) Social History [...] Description 12/04/2025 9:30 AM EST Clinical Support [address] [address] 12/26/2025 10:45 AM EST Office Visit [address] [address] Leslee Mckeon NP [address] [place] [address] 01/18/2026 11:00 AM EST Clinical Support [address] [address] documented as of this encounter Visit Diagnoses Diagnosis Depo-Provera contraceptive status- Primary documented in this encounter Additional Health Concerns Assessment Noted Time PHQ-9 Depression Total Score: 11 025 4:04 PM EST documented as of this encounter Care Teams Manager Title Relationship Specialty Start Date End Date Leslee Mckeon NP [address] [place] [address] PCP - General Family Medicine 05/30/24 documented as of this encounter
--- OUTSIDE RECORDS SUMMARY | 2025-11-27 18:28 | XMS_ITS | Encounter Summary ---
Author Organization [employer] Address 75 [facility] 7t [place] [address] Care Team Providers Care Internet Assessor Name Role Phone Leslee Mckeon NP Primary Care Provider [phone] Encounter Details Date Type Department Care Team ([facility] st Contact Info) Description 11/05/2025 Results Follow-Up [facility] [address] [place] [address] Leslee Mckeon NP 230 [place] [address] Chlamydia/N. Gonorrhoeae, PCR, Urine Social History Tobacco Use Types Packs/Day Years [...] Description 12/04/2025 9:30 AM EST Clinical Support [address] [address] 12/26/2025 10:45 AM EST Office Visit [facility] [address] [place] [address] Leslee Mckeon NP 230 [place] [address] 01/18/2026 11:00 AM EST Clinical Support [address] [address] documented as of this encounter Visit Diagnoses Not on filedocumented in this encounter Additional Health Concerns Assessment Noted Time PHQ-9 Depression Total Score: 11 025 4:04 PM EST documented as of this encounter Care Teams Internet Assessor Relationship Specialty Start Date End Date Leslee Mckeon NP 230 [place] [address] PCP - General Family Medicine 05/30/24 documented as of this encounter
--- OUTSIDE RECORDS SUMMARY | 2025-11-27 18:28 | XMS_ITS | Encounter Summary ---
Author Organization [employer] Address [address] [facility] [address] 7t [place] [address] Care Team Providers Care Cafe Worker Name Role Phone Leslee Mckeon NP Primary Care Provider [phone] Reason for Visit * Reason Onset Date Comments Lab Orders 11/20/2025 Pt walked in req uesting TDAP , MMR , chicken pox, pt needs the HEP B VACCINE also she needs blood work for titers after vaccine everything is for college. Encounter Details Date Type Department Care Team (Late st Contact Info) Description 11/20/2025 Telephone [facility] [address] [place] [address] Leslee Mckeon NP 230 [place], [place] [phone] Lab Orders (Pt walked in requesting TDAP , MMR , chicken pox, pt needs the HEP B VACCINE also she needs blood work for titers after vaccine everything is for college. ) Social History Tobacco Use Types Packs/Day Years [...] Description 12/04/2025 9:30 AM EST Clinical Support [address] [address] 12/26/2025 10:45 AM EST Office Visit [address] [address] Leslee Mckeon NP [address] [place] [address] 01/18/2026 11:00 AM EST Clinical Support [address] [place] [address] documented as of this encounter Visit Diagnoses Not on filedocumented in this encounter Additional Health Concerns Assessment Noted Time PHQ-9 Depression Total Score: 11 025 4:04 PM EST documented as of this encounter Care Teams Cafe Worker Relationship Specialty Start Date End Date Leslee Mckeon NP [address] [place] [address] PCP - General Family Medicine 05/30/24 documented as of this encounter
--- OUTSIDE RECORDS SUMMARY | 2025-11-27 18:28 | XMS_ITS | Encounter Summary ---
Author Organization [employer] Address 75 [facility] 7 [place] [address] Care Team Providers Care Furnace Filler Name Role Phone Leslee Mckeon NP Primary Care Provider [phone] Reason for Visit * Reason Onset Date Comments Appointment Request 10/23/2025 Encounter Details Date Type Department Care Team ([facility] st Contact Info) Description 10/23/2025 Telephone [facility] 230 [place], [place] [phone] Leslee Mckeon NP 230 [place] [address] Appointment Request Social History Tobacco Use Types [...] with others, in a hotel, in a care home, living outside on the street, on a [...] PM EST TC placed to pt via [employer] sports official ([place] ID#[id number]) regarding appointment request. Pt denied need for sports official. TC returned to pt without sports official. Pt requesting STI testing and depo provera at nurse visit. Advised pt to go to [facility] for [facility] testing. Pt reports they were advised by PCP STI testing and DEPO could be done at the same visit. TC placed to vehicle refinisher Leticia. Leticia reports we used to have [...] for ati and control Please contact at [phone] documented in this encounter Plan of Treatment Upcoming Encounters Date Type Department Care Team (Late st Contact Info) Description 12/04/2025 9:30 AM EST Clinical Support [address] [address] 12/26/2025 10:45 AM EST Office Visit [address] [address] Leslee Mckeon NP [address] [place] [address] 01/18/2026 11:00 AM EST Clinical Support [address] [address] documented as of this encounter Visit Diagnoses Not on filedocumented in this encounter Additional Health Concerns Assessment Noted Time PHQ-9 Depression Total Score: 11 025 4:04 PM EST documented as of this encounter Care Teams Furnace Filler Relationship Specialty Start Date End Date Leslee Mckeon NP [address] [place] [address] PCP - General Family Medicine 05/30/24 documented as of this encounter
--- OUTSIDE RECORDS SUMMARY | 2025-11-27 18:28 | XMS_ITS | Clinical Summary ---
Author Organization [employer] Address [address] [facility] [address] [place] [address] Care Team Providers Care Claims Correspondence Clerk Name Role Phone Leslee Mckeon NP Primary Care Provider [phone] Allergies No known active allergies Medications * This document contains information received from the source organization and may not represent a complete record from that organization. cholecalciferol (Vitamin D-3) 10 MCG (400 UNIT) tablet TOME DOS TABLETAS POR V A ORAL TODOS LOS D 5 Active oxymetazoline (Afrin Nasal Ravenel) 0.05 % nasal sprayIndications: Dysfunction of both [...] , Patient to reach out to [facility] team as needed, and Patient to engage in OP therapy Hypovitaminosis D 11/07/2021 Assessment & Plan (12/28/2024 10:52 AM EST): -started cholecalciferol 800 U every day. Patient is tolerating well Dysmenorrhea 11/05/2021 Resolved Problems Problem Noted Date Diagnosed Date Resolved Date Decreased thyroid stimulating hormone level 11/07/2021 12/28/2024 Encounters Date Type Department Care Team Description 11/20/2025 [address] [place] [address] Leslee Mckeon NP Lab Orders (Pt walked in requesting TDAP , MMR , chicken pox, pt needs the HEP B VACCINE also she needs blood work for titers after vaccine everything is for college. ) 11/15/2025 [address] [place] [address] Leslee Mckeon NP 11/05/2025 Results Follow-Up [address] [place] [address] Leslee Mckeon NP Chlamydia/N. Gonorrhoeae, PCR, Urine 11/02/2025 11:30 AM EST Clinical Support [address] [address] Marie Landry RN Routine screening for STI (sexually transmitted infection) 11/02/2025 Orders Only [facility] [place] [address] Leslee Mckeon NP Depo-Provera contraceptive status (Primary Dx) 11/02/2025 [address] [place] [address] Marie Landry RN 11/02/2025 Travel 10/23/2025 [address] [place] [address] Leslee Mckeon NP Appointment Request 10/17/2025 4:00 PM EST Office Visit [facility] [address] [place] [address] Leslee Mckeon NP Routine screening for STI (sexually transmitted infection) (Primary Dx); Impaired regulation of body temperature; Encounter for initial prescription of injectable contraceptive 10/17/2025 Travel 10/16/2025 Telephone [facility] [address] [place] [address] Leslee Mckeon NP CHARTPREP from Last 3 [...] with others, in a hotel, in a residential, living outside on the street, on a [...] Description 12/04/2025 9:30 AM EST Clinical Support [address] [address] 12/26/2025 10:45 AM EST Office Visit [address] [address] Leslee Mckeon NP [address] [place] [address] 01/18/2026 11:00 AM EST Clinical Support [address] [address] Health Maintenance Due Date Last Done Comments HIV Screening 2005 Family Planning (PISQ) 2020 Meningococcal B Vaccine (1 of 2 - Standard) 2021 Hepatitis C Screening 2023 COVID-19 Vaccine ( - season) 2025 Influenza Vaccine (#1) 2025 , 02/10/2022, 12/20/2020, Additional history exists SDOH Screening 12/25/2025 12/25/2024 Depression Monitoring 04/16/2026 10/17/2025, 025 DTaP/Tdap/Td Vaccines (7 - Td or Tdap) 08/31/2026 08/31/2016, 04/04/2009, 08/13/2006, Additional history exists Alcohol/Substance Use Screening 10/17/2026 10/17/2025 Disability Screening 10/17/2026 10/17/2025 Tobacco Screening 10/17/2026 10/17/2025 Chlamydia and Gonorrhea Screening 11/02/2026 11/02/2025, 09/18/2021 Zoster Vaccines (1 of 2) 2055 RSV [...] Procedure Name Priority Date/Time Associated Diagnosis Comments TRICHOMONAS VAGINALIS RNA, QUALITATIVE, TMA Routine 11/02/2025 11:52 AM EST Routine screening for STI (sexually transmitted infection) CHLAMYDIA/TRICHOMONA S/NEISSERIA GONORRHOEAE, PCR, URINE Routine 11/02/2025 11:52 AM EST Routine screening for STI (sexually transmitted infection) POCT , URINE Routine 11/02/2025 11:46 AM EST Routine screening for STI (sexually transmitted infection) from Last 3 Months Results * Chlamydia/N. Gonorrhoeae, PCR, Urine (11/02/2025 11:52 AM EST) CT PCR, Urine NOT DETECTED Not Detect. [facility] Comment:A not detected test result does not exclude the possibilityof infection because test results can be affected byimproper specimen collection, concurrent antibiotic therapy,or the number of organisms in the specimen which may bebelow the sensitivity of the test. As with many diagnostictests, results from the Xpert CT/NG assay should beinterpreted in conjunction with other laboratory andclinical data available to the clinician.The Xpert CT/NG assay should not be used for the evaluationof suspected sexual abuse or for other medico-legalindications. Additional testing is recommended in anycircumstance when false positive or false negative resultscould lead to adverse medical, social or psychologicalconsequences. NG PCR, Urine NOT DETECTED Not Detect. [facility] Comment:A not detected test result does not exclude the possibilityof infection because test results can be affected byimproper specimen collection, concurrent antibiotic therapy,or the number of organisms in the specimen which may bebelow the sensitivity of the test. As with many diagnostictests, results from the Xpert CT/NG assay should beinterpreted in conjunction with other laboratory andclinical data available to the clinician.The Xpert CT/NG assay should not be used for the evaluationof suspected sexual abuse or for other medico-legalindications. Additional testing is recommended in anycircumstance when false positive or false negative resultscould lead to adverse medical, social or psychologicalconsequences. Urine (Urine, Random) 11/02/2025 11:52 AM EST 11/02/2025 5:25 PM EST Leslee Appra INTERNET SALES MANAGER LAB URINE ORDERABLES Final Resu lt [facility] [address] [place] [address] [phone] * Trichomonas RNA (Urine/Vaginal) (11/02/2025 11:52 AM EST) Trichomas vaginalis RNA, QL, TMA NOT DETECTED NOT DETECTED [facility] Comment:For additional infor mation, please refer tohttp://education.Inventalator/faq/Trichomonastma(This link is being provided for informational/educational purposes only.)THIS TEST WAS PERFORMED AT:[facility] [place] [id number] CORDERO MD Urine 11/02/2025 11:5 2 AM EST 11/02/2025 5:25 PM EST [facility] INTERNET SALES MANAGER LAB BODY FLUIDS AND STOOLS PANFILO MARTINI Final Result [facility] [address] [place] [address] [phone] * POCT Urine (11/02/2025 11:46 AM EST) Preg Test, Ur Negative Negative, Indeterminate, None Detected, Trace, 3+, Specimen unsatisfactory for evaluation, Weakly Positive, 1+, 2+ QC Media Lot # [id number] Lot# Expiration Date [id number] Urine 11/02/2025 11:4 6 AM EST Leslee Mckeon INTERNET SALES MANAGER POINT OF CARE TEST ENTER/EDIT O RDERABLES Final Result from Last 3 Months Insurance [facility] Care Teams Claims Correspondence Clerk Relationship Specialty Start Date End Date Leslee Mckeon NP [address] [place] [address] PCP - General Family Medicine 05/30/24
--- OUTSIDE RECORDS SUMMARY | 2025-11-27 18:29 | XMS_ITS | Encounter Summary ---
Author Organization [employer] Address [address] [facility] [address] [place] [address] Care Team Providers Care Compensation And Hris Analyst Name Role Phone Leslee Mckeon NP Primary Care Provider [phone] Reason for Visit * Reason Onset Date Comments Referral 12/01/2024 Encounter Details Date Type Department Care Team ([facility] st Contact Info) Description 12/01/2024 Telephone [facility] [address] [place] [address] Leslee Mckeon NP [address] [place] [address] Referral Social History Tobacco Use Types Packs/Day [...] D, TSH Date when done: 11/13/2024 [place] [facility] [place] in this encounter Plan of Treatment Upcoming Encounters Date Type Department Care Team (Late st Contact Info) Description 12/04/2025 9:30 AM EST Clinical Support [address] [address] 12/26/2025 10:45 AM EST Office Visit [address] [address] Leslee Mckeon NP [address] [place] [phone] 01/18/2026 11:00 AM EST Clinical Support [address] [address] documented as of this encounter Visit Diagnoses Not on filedocumented in this encounter Additional Health Concerns Assessment Noted Time PHQ-9 Depression Total Score: 15 024 10:44 AM EST documented as of this encounter Care Teams Compensation And Hris Analyst Relationship Specialty Start Date End Date Leslee Mckeon NP [address] [place] [phone] PCP - General Family Medicine 05/30/24 documented as of this encounter
== END 2025-11-27 15:00 | disposition left against medical advice (07) ==
PROVIDERS: Emergency Provider Emergency Medicine; PCP Nurse Practitioner
DX: Z04.1 Encounter for examination and observation following transport accident (principal); Z53.21 Procedure and treatment not carried out due to patient leaving prior to being seen by health care provider